=== PATIENT | female | born 1945 | race Caucasian/White ===

== ENCOUNTER 2019-08-25 12:38 | Day surgery (SDC) | payer MEDICARE, OTHER ==
[~2019-08-25] VITALS: Ht 160 cm; Wt 92.0 kg
[~2019-08-25 12:38] MED LIST: ASPI325EC PO; ASPI81CH PO; ATOR80 PO; CLON1 PO; CLOP75 PO; ESTMEDA PO; ESTR2 PO; ETOD300 PO; ETOD500 PO; HYDACE25S PR; LACT10SY PO; LEVSOD75 PO; LISI5 PO; METO25ER PO; NITR.4SL SL; Synthroid/Levothroid PO
--- NOTE | 2019-08-25 14:11 | NUR ---
PT ADMITTED TO [facility]. AGREES WITH PLANNED SURGEY. LUNG SOUNDS CLEAR.
--- NOTE | 2019-08-25 14:18 | NUR ---
NOZIN TO NARES BILATERALLY PER ORDER.
--- NOTE | 2019-08-25 14:46 | NUR ---
SPOKE WITH DR. RANGEL REGARDING OXYCONTIN ORDER. PT STATES IT "KNOCKS HER OUT" VERBAL ORDER GIVEN TO ONLY GIVE 10MG.
[2019-08-25] MEDS ORDERED: LOSA25 PO (15:29)
--- NOTE | 2019-08-25 19:45 | NUR ---
RECEIVED HAND OFF FROM Sukhi MENENDEZ RN USING SBAR. TRANSPORTED TO ROOM VIA HOSPITAL BED, TOLERATED WELL. AAOX3, HICKMAN, FOLLOWS ALL COMMANDS. ORIENTED TO ROOM, CALL SYSTEM, AND POC, VOICES UNDERSTANDING. RESPIRATIONS EVEN AND UNLABORED ON O2 AT 2L/NC, O2 SAT AT 95% WILL WEAN. LUNG SOUNDS CLEAR BILATERALLY. ABDOMEN SOFT AND NONDISTENDED. BOWEL SOUNDS PRESENT IN ALL QUADS. LLE WITH KHUSHI WRAP THAT IS C/D/I, AND POLAR MONICA ARE IN PLACE. GOOD DISTAL PULSES NOTED, ABLE TO MOVE FEET AND WIGGLE TOES. TEDS/SCD TO BLE. DENIES PAIN AT THIS TIME. SAFETY MEASURES IN PLACE. WILL CONTINUE TO MONITOR.
[2019-08-26 05:40] LABS: BASOPHILS ABSOLUTE AUTO 0.01 K/mm3 (0.00-0.23); BASOPHILS PERCENT AUTO 0 % (0-2); EOSINOPHILS PERCENT AUTO 0 % (0-6); Hematocrit 39.6 % (33.0-51.0); Hemoglobin 12.7 g/dL (11.5-16.0); IMMATURE GRAN ABSOLUTE AUTO 0.02 K/mm3 (0.00-0.10); IMMATURE GRAN PERCENT AUTO 0 % (0-1); LYMPHOCYTES ABSOLUTE AUTO 0.59 K/mm3 (0.84-5.20); LYMPHOCYTES PERCENT AUTO 8 % (21-46); MONOCYTES ABSOLUTE AUTO 0.12 K/mm3 (0.16-1.47); MONOCYTES PERCENT AUTO 2 % (4-13); Mean Corpuscular HGB 29.1 pg (26.0-34.0); Mean Corpuscular HGB Conc 32.1 g/dL (31.5-36.5); Mean Corpuscular Volume 91 fL (80-100); Mean Platelet Volume 10.6 fL (9.1-12.4); NEUTROPHILS ABSOLUTE AUTO 6.79 K/mm3 (1.96-9.15); NEUTROPHILS PERCENT AUTO 90 % (41-73); Platelet Count 162 K/mm3 (150-400); RDW Standard Deviation 42.8 fL (35.1-46.3); Red Blood Cell Count 4.37 M/mm3 (3.80-5.20); White Blood Cell Count 7.53 K/mm3 (4.00-11.30)
--- NOTE | 2019-08-26 05:51 | NUR ---
SHIFT SUMMARY HAS RESTED WELL, PAIN MANAGED WITH SCHEDULED TYLENOL AND TORADOL THIS SHIFT. AMBULATED X1 TO BATHROOM TO URINATE, TOLERATED WELL. HAS NOT HAD A BM YET, BUT IS PASSING FLATUS. IVF INFUSING PER MD ORDERS. DENIES FURTHER NEEDS OR WANTS AT THIS TIME. SAFETY MEASURES IN PLACE. WILL GIVE HAND OFF TO ONCOMING SHIFT USING SBAR DURING BEDSIDE REPORT.
[2019-08-26 05:59] LABS: Anion Gap 4 mmol/L (6-16); Blood Urea Nitrogen 19 mg/dL (8-24); CO2, Blood 27 mmol/L (21-32); Calcium, Blood 8.4 mg/dL (8.5-10.1); Chloride, Blood 109 mmol/L (98-108); Creatinine, Blood 0.48 mg/dL (0.40-1.00); Glomerular Filtration Rate >60 (60-); Glucose, Blood 146 mg/dL (70-99); Magnesium, Blood 2.2 mg/dL (1.6-2.4); Potassium, Blood 4.1 mmol/L (3.5-5.5); Sodium, Blood 140 mmol/L (136-145)
--- NOTE | 2019-08-26 06:21 | NUR ---
C/O REDNESS TO RIGHT HAND. NO HEAT, RASH, RAISED AREAS, N/T, PAIN, OR ITCHING REPORTED. EDEMA NOTED TO HAND AND FINGERS, PT IS ABLE TO CLOSE HAND. 18G SL PIV TO INNER ASPECT HAS NOT BEED USED D/T REPORTED DISCOMFRT. NO LABS WERE DRAWN FROM THIS ARM. BOARDER MARKED AND NOTED. ARM ELEVATED ON PILLOW ABOVE HEART LEVEL. WILL REPORT TO ONCOMING SHIFT. DENIES REDNESS ANYWHERE ELSE IN HER BODY. DENIES FURTHER NEEDS OR WANTS AT THIS TIME. SAFETY MEASURES IN PLACE. WILL CONTINUE TO MONITOR.
--- NOTE | 2019-08-26 10:06 | NUR ---
08/26/19 1006 Stacie Salinas VERIFICATIONS: EDIT CHART.
[2019-08-26] MEDS ORDERED: ASPI81CH PO ×2 (12:35→13:38)
[2019-08-26] MEDS ORDERED: ATOR80 PO (12:36)
[2019-08-26] MEDS ORDERED: HYDMOR2 PO (12:40)
[2019-08-26] MEDS ORDERED: PROM25 PO (12:40)
[2019-08-26] MEDS ORDERED: Bactrim Ds Tab1 EACH PO (12:41)
[2019-08-26] MEDS ORDERED: ATOR20 PO (13:31)
[2019-08-26] MEDS ORDERED: LOVA40 SC (13:35)
[2019-08-26] MEDS ORDERED: ENOX40I SC (13:41)
--- NOTE | 2019-08-26 15:00 | NUR ---
PATIENT D/C'D HOME WITH SPOUSE AT THIS TIME; STATES UNDERSTANDING OF MEDS, ACTIVITY, WOUND CARE, OP PT, F/U APPT, ETC. PATIENT STATES PAIN WELL CONTROLLED WITH PO PAIN MEDS. VOIDING, TOLERATING DIET. DRESSING CDI. CIRC CHECKS WNL. NO ACUTE CHANGES OR C/O.
== END 2019-08-26 14:57 | disposition home or self-care (01) ==
LOC: ORSCMMR 12:38 → ORD 14:15 → ORSCMMR 14:30 → ORD 15:00 → ORSCMMR 19:47 → SURS 19:47 → ORSCMMR 08-26 14:57 → ORD 09-29 12:00
PROVIDERS: Orthopaedic Surgery
PROC: 8E0YXBZ Computer Assisted Procedure of Lower Extremity (ICD-10-PCS; principal; 2019-08-25 16:00)
PROC: 0SRC069 Replacement of Right Knee Joint with Oxidized Zirconium on Polyethylene Synthetic Substitute, Cemented, Open Approach (ICD-10-PCS; principal; 2019-08-25 16:00)
DX: M17.12 Unilateral primary osteoarthritis, left knee (principal); E05.90 Thyrotoxicosis, unspecified without thyrotoxic crisis or storm; I25.2 Old myocardial infarction; I10 Essential (primary) hypertension; J45.909 Unspecified asthma, uncomplicated; Z79.82 Long term (current) use of aspirin; Z79.899 Other long term (current) drug therapy
CPT/HCPCS: 36415; 73560-LT; 80048; 82947; 83735; 85025; 88300; 97110; 97116; 97162; A9270-GY; C1713; C1776; J0171; J0690; J0735; J1100; J1650; J1815; J1885; J2250; J2405; J2704; J2795; J3010; J7030; J7120

== ENCOUNTER → 2022-07-25 | Outpatient (CLI) | payer MEDICARE ==
[~2022-07-25] MED LIST changes: +ATOR20 PO; +Bactrim Ds Tab1 EACH PO; +ENOX40I SC; +HYDMOR2 PO; +LOSA25 PO; +LOVA40 SC; +PROM25 PO
[2022-07-25 12:14] LABS: BASOPHILS ABSOLUTE AUTO 0.03 K/mm3 (0.00-0.23); BASOPHILS PERCENT AUTO 1 % (0-2); EOSINOPHILS ABSOLUTE AUTO 0.11 K/mm3 (0.00-0.68); EOSINOPHILS PERCENT AUTO 2 % (0-6); Hematocrit 48.4 % (33.0-51.0); Hemoglobin 15.9 g/dL (11.5-16.0); IMMATURE GRAN ABSOLUTE AUTO 0.02 K/mm3 (0.00-0.10); IMMATURE GRAN PERCENT AUTO 0 % (0-1); LYMPHOCYTES PERCENT AUTO 13 % (21-46); MONOCYTES ABSOLUTE AUTO 0.48 K/mm3 (0.16-1.47); MONOCYTES PERCENT AUTO 9 % (4-13); Mean Corpuscular HGB 29.2 pg (26.0-34.0); Mean Corpuscular HGB Conc 32.9 g/dL (31.5-36.5); Mean Corpuscular Volume 89 fL (80-100); NEUTROPHILS ABSOLUTE AUTO 3.97 K/mm3 (1.96-9.15); NEUTROPHILS PERCENT AUTO 75 % (41-73); Platelet Count 144 K/mm3 (150-400); RDW Coefficient Variation 14.6 % (11.7-14.2); RDW Standard Deviation 47.7 fL (35.1-46.3); Red Blood Cell Count 5.45 M/mm3 (3.80-5.20); White Blood Cell Count 5.31 K/mm3 (4.00-11.30)
[2022-07-25 12:24] LABS: Bun/Creatinine Ratio 29.1 (12.0-20.0); Calcium, Blood 8.9 mg/dL (8.5-10.1); Creatinine, Blood 0.79 mg/dL (0.40-1.00); Potassium, Blood 4.1 mmol/L (3.5-5.5)
== END | disposition home or self-care (01) ==
LOC: LAB SHORT 12:10 → LAB 12:10
PROVIDERS: Physician Assistant Surgical
DX: I48.91 Unspecified atrial fibrillation (principal); R06.00 Dyspnea, unspecified
CPT/HCPCS: 80048; 83880; 84484; 85025

== ENCOUNTER 2023-04-16 08:10 | Day surgery (SDC) | payer MEDICARE, OTHER ==
[~2023-04-16 08:10] MED LIST changes: +CEPH500 PO; +Norco 5-325 Ta1 EACH PO
== END 2023-05-02 22:54 | disposition home or self-care (01) ==
LOC: MOI MAM 08:10
DX: R92.0 Mammographic microcalcification found on diagnostic imaging of breast (principal)
CPT/HCPCS: 19081; 88305; A4648

== ENCOUNTER → 2023-07-01 | Outpatient (CLI) | payer MEDICARE | END | disposition home or self-care (01) | LOC: LAB 11:13 → LAB SHORT 11:13 | DX: R10.12 Left upper quadrant pain (principal); R10.13 Epigastric pain | CPT/HCPCS: 87338 ==

== ENCOUNTER 2024-03-05 09:15 | Observation (INO) | payer MEDICARE ==
[~2024-03-05] VITALS: Ht 162.6 cm; Wt 74.5 kg
[2024-03-05 10:09] LABS: BASOPHILS ABSOLUTE AUTO 0.04 K/mm3 (0.00-0.23); BASOPHILS PERCENT AUTO 1 % (0-2); EOSINOPHILS ABSOLUTE AUTO 0.12 K/mm3 (0.00-0.68); EOSINOPHILS PERCENT AUTO 2 % (0-6); Hematocrit 40.7 % (33.0-51.0); Hemoglobin 13.7 g/dL (11.5-16.0); IMMATURE GRAN ABSOLUTE AUTO 0.02 K/mm3 (0.00-0.10); IMMATURE GRAN PERCENT AUTO 0 % (0-1); LYMPHOCYTES ABSOLUTE AUTO 1.15 K/mm3 (0.84-5.20); LYMPHOCYTES PERCENT AUTO 23 % (21-46); MONOCYTES ABSOLUTE AUTO 0.39 K/mm3 (0.16-1.47); MONOCYTES PERCENT AUTO 8 % (4-13); Mean Corpuscular HGB 29.4 pg (26.0-34.0); Mean Corpuscular HGB Conc 33.7 g/dL (31.5-36.5); Mean Corpuscular Volume 87 fL (80-100); Mean Platelet Volume 11.6 fL (9.1-12.4); NEUTROPHILS ABSOLUTE AUTO 3.34 K/mm3 (1.96-9.15); NEUTROPHILS PERCENT AUTO 66 % (41-73); Platelet Count 141 K/mm3 (150-400); RDW Standard Deviation 45.1 fL (35.1-46.3); Red Blood Cell Count 4.66 M/mm3 (3.80-5.20); White Blood Cell Count 5.06 K/mm3 (4.00-11.30)
[2024-03-05 10:28] LABS: Albumin, Blood 3.9 g/dL (3.4-5.0); Albumin/Globulin Ratio 1.3 (0.8-1.8); Bilirubin, Total 1.2 mg/dL (0.1-1.0); Bun/Creatinine Ratio 27.4 (12.0-20.0); Calcium, Blood 9.5 mg/dL (8.5-10.1); Creatinine, Blood 0.84 mg/dL (0.40-1.00); Globulin, Blood 3.1 g/dL (2.2-4.0)
[2024-03-05] MEDS ORDERED: Aspirin 81 MG Chew PO ONE (15:00)
[2024-03-05] MEDS ORDERED: Acetaminophen 325 MG TABLET PO PRN (17:30)
[2024-03-05] MEDS ORDERED: Magnesium Hydroxide Conc 10 ML UDC PO PRN (17:30)
[2024-03-05] MEDS ORDERED: ELIQUIS5 M2 PO (20:17)
[2024-03-05] MEDS ORDERED: METO50ER PO (20:17)
[2024-03-05] MEDS ORDERED: PANT40 PO (20:19)
[2024-03-05 20:55] VITALS: BP 140/99
[2024-03-05] MEDS ORDERED: Metoprolol Succinate 50 MG TABCR PO SCH (21:00)
[2024-03-05] MEDS ORDERED: Apixaban 5 MG Tab PO SCH (21:00)
[2024-03-06 02:15] VITALS: BP 127/79
[2024-03-06] MEDS ORDERED: Levothyroxine Sodium 0.175 MG TAB PO SCH (06:00)
[2024-03-06] MEDS ORDERED: Pantoprazole Sodium 40 MG Tab PO SCH (06:00)
--- NOTE | 2024-03-06 06:40 | NUR ---
Patient alert and oriented, VSS, resting comfortably in bed. Pt. ambulating to restroom with standby assistance and FWW for needs.
[2024-03-06 07:51] VITALS: BP 129/65
[2024-03-06] MEDS ORDERED: Atorvastatin 40 MG Tab PO SCH (09:00)
[2024-03-06] MEDS ORDERED: Aspirin 81 MG Chew PO SCH (09:00)
[2024-03-06] MEDS ORDERED: Mometasone/Formoterol MDI 200/5 mcg 13 GM INH SCH (13:05)
[2024-03-06] MEDS ORDERED: Regadenoson 0.4 MG/5 ML SYRINGE ONE (14:14)
--- NOTE | 2024-03-06 15:55 | NUR ---
SHIFT SUMMARY; ECHO DONE TODAY. ONE DAY STRESS TEST ORDERED AND DONE TODAY. PATIENT HAS NOT HAD ANY SYNCOPAL EPISODES TODAY. SHE REMAINS IN AFIB. SHE HAS PLEASANT AFFECT AND IS NOTED TO BE JOKING WITH STAFF. PATIENT IS APHASIC AT TIMES HAVING DIFFICULTY FORMING SENTENCES AND FINDING CORECT WORDS. SHE APPEARS FRUSTRATED AT TIMES. SHE REMAINS ON TELE AND SHOWS AFIB. PER PATIENT SHE DID NOT KNOW SHE HAD AFIB AND WAS UNSURE WHY SHE WAS ON ELOQUIS. PATIENT DENIES ANY PAIN OR DISCOMFORT TODAY. HER VITAL SIGNS ARE STABLE AND WNL. WILL REMAIN AVAILABLE FOR THIS PATIENT FOR ANY WANTS OR NEEDS THAT COME UP UNTIL REPORT AND HAND OFF TO NOC SHIFT RN.
[2024-03-06 17:26] VITALS: BP 128/92
[2024-03-06 20:30] VITALS: BP 126/92
[2024-03-07 02:36] VITALS: BP 132/83
[2024-03-07 05:49] VITALS: BP 141/98
--- NOTE | 2024-03-07 06:06 | NUR ---
Patient alert and oriented x3, but forgetful overnight, using call light and bed alarm for assistance ambulating to restroom. VSS, tolerating room air appropriately, unsteady on feet at times while using FWW. Patient noted minor sharp pain to right anterior chest, which resolved after a couple of minutes without interventions, vitals WNL.
[2024-03-07 07:07] VITALS: BP 134/86
[2024-03-07] MEDS ORDERED: Sacubitril/Valsartan 24 MG-26 MG Tab PO SCH (09:00)
[2024-03-07] MEDS ORDERED: DULERA 200 MCG-13 GM INH (11:03)
[2024-03-07] MEDS ORDERED: ENTRESTO 24 MG1 EAC3 PO (11:04)
[2024-03-07] MEDS ORDERED: FURO20 PO (11:04)
== END 2024-03-07 11:50 | disposition home or self-care (01) ==
LOC: ER 09:15 → ERHOLD 09:16 → MEDS 09:16 → ENPENDDIS 03-07 10:42 → MEDS 03-07 11:50
PROVIDERS: Physician Assistant; ADMIT Internal Medicine
DX: I11.0 Hypertensive heart disease with heart failure (principal); I50.23 Acute on chronic systolic (congestive) heart failure; M77.8 Other enthesopathies, not elsewhere classified; I48.91 Unspecified atrial fibrillation; E03.9 Hypothyroidism, unspecified; J45.909 Unspecified asthma, uncomplicated; I25.10 Atherosclerotic heart disease of native coronary artery without angina pectoris; Z95.5 Presence of coronary angioplasty implant and graft; Z88.5 Allergy status to narcotic agent; Z88.8 Allergy status to other drugs, medicaments and biological substances; Z79.82 Long term (current) use of aspirin; Z79.899 Other long term (current) drug therapy
CPT/HCPCS: 36415; 71046; 78452; 80053; 84443; 84484; 85025; 85379; 93005; 93010; 93017; 94640; 94664; 94760; 99285-25; A9270; A9500; C8929; G0378; J2785; Q9957

== ENCOUNTER → 2024-03-12 | Outpatient (CLI) | payer MEDICARE ==
[~2024-03-12] MED LIST changes: +DULERA 200 MCG-13 GM INH; +ELIQUIS5 M2 PO; +ENTRESTO 24 MG1 EAC3 PO; +FURO20 PO; +METO50ER PO; +PANT40 PO
== END ==
LOC: LAB SHORT 12:36 → LAB 12:36
DX: R31.29 Other microscopic hematuria (principal)
CPT/HCPCS: 87086

== ENCOUNTER 2024-09-14 12:12 | Inpatient (IN) | payer MEDICARE, OTHER ==
[~2024-09-14] VITALS: Ht 162.6 cm; Wt 72.1 kg
[~2024-09-14 12:12] MED LIST changes: -Synthroid/Levothroid PO; +Synthroid175 MCG PO
[2024-09-14] MEDS ORDERED: Ondansetron HCl 2 MG / ML 2ML Vial IV PRN (12:40)
[2024-09-14 13:09] LABS: Albumin, Blood 3.8 g/dL (3.4-5.0); Albumin/Globulin Ratio 1.2 (0.8-1.8); Bilirubin, Total 1.1 mg/dL (0.1-1.0); Bun/Creatinine Ratio 24.1 (12.0-20.0); Calcium, Blood 9.3 mg/dL (8.5-10.1); Creatinine, Blood 0.95 mg/dL (0.40-1.00); Globulin, Blood 3.2 g/dL (2.2-4.0); Potassium, Blood 4.3 mmol/L (3.5-5.5)
[2024-09-14] MEDS ORDERED: Aspirin 325 MG Tab PO ONE (13:15)
[2024-09-14 13:19] LABS: BASOPHILS ABSOLUTE AUTO 0.03 K/mm3 (0.00-0.23); BASOPHILS PERCENT AUTO 1 % (0-2); EOSINOPHILS ABSOLUTE AUTO 0.07 K/mm3 (0.00-0.68); EOSINOPHILS PERCENT AUTO 2 % (0-6); Hematocrit 49.1 % (33.0-51.0); Hemoglobin 15.9 g/dL (11.5-16.0); IMMATURE GRAN PERCENT AUTO 0 % (0-1); LYMPHOCYTES ABSOLUTE AUTO 1.14 K/mm3 (0.84-5.20); LYMPHOCYTES PERCENT AUTO 24 % (21-46); MONOCYTES ABSOLUTE AUTO 0.41 K/mm3 (0.16-1.47); MONOCYTES PERCENT AUTO 9 % (4-13); Mean Corpuscular HGB 29.5 pg (26.0-34.0); Mean Corpuscular HGB Conc 32.4 g/dL (31.5-36.5); Mean Corpuscular Volume 91 fL (80-100); Mean Platelet Volume 11.2 fL (9.1-12.4); NEUTROPHILS ABSOLUTE AUTO 3.03 K/mm3 (1.96-9.15); NEUTROPHILS PERCENT AUTO 65 % (41-73); Platelet Count 161 K/mm3 (150-400); RDW Standard Deviation 47.2 fL (35.1-46.3); Red Blood Cell Count 5.39 M/mm3 (3.80-5.20); White Blood Cell Count 4.68 K/mm3 (4.00-11.30)
[2024-09-14] MEDS ORDERED: Nitroglycerin 0.4 MG SUBL SL PRN (13:20)
[2024-09-14] MEDS ORDERED: Aspirin 81 MG Chew PO ONE (13:30)
[2024-09-14] MEDS ORDERED: Mometasone/Formoterol MDI 200/5 mcg 13 GM INH PRN (16:05)
[2024-09-14] MEDS ORDERED: FLU VACC TS2024-25(6MOS UP)/PF 45 MCG/0.5 ML SYRINGE IM SCH (16:05)
[2024-09-14 17:52] VITALS: BP 119/90
--- NOTE | 2024-09-14 18:09 | NUR ---
PT ARRIVED ON MEDICAL FLOOR FROM ER. DENIES CHEST PAIN AND SOB, ABLE TO EXPRESS NEEDS. DAUGHTER AT BEDSIDE.
[2024-09-14] MEDS ORDERED: JARDIANCE10 MG PO (18:32)
[2024-09-14] MEDS ORDERED: Sacubitril/Valsartan 24 MG-26 MG Tab PO SCH (21:00)
[2024-09-14] MEDS ORDERED: Apixaban 5 MG Tab PO SCH (21:00)
[2024-09-14 21:10] VITALS: BP 97/61
[2024-09-14 23:45] VITALS: BP 91/64
[2024-09-14 23:48] VITALS: BP 91/64
[2024-09-15] VITALS (8 sets, daily range): BP systolic 81–124; BP diastolic 54–107
--- NOTE | 2024-09-15 04:33 | NUR ---
SHIFT SUMMARY ADMITTED FOR CHEST PAIN/PALPITATIONS. FULL CODE. PLAN IS FOR NEW RX TRIAL TOMORROW TO MANAGE HER S/SX. SHE DID STATE TWO EPISODES OF PAIN IN HER RIGHT CHEST, ONCE RECEIVING NITRO WITH RELIEF. TELEMETRY: AFIB @ 77 BPM. CATRINA CBG'S. ON RA. A&O X4. STANDBY ASSIST - BRP.
[2024-09-15 05:42] LABS: BASOPHILS ABSOLUTE AUTO 0.03 K/mm3 (0.00-0.23); BASOPHILS PERCENT AUTO 1 % (0-2); EOSINOPHILS ABSOLUTE AUTO 0.09 K/mm3 (0.00-0.68); EOSINOPHILS PERCENT AUTO 2 % (0-6); Hematocrit 43.3 % (33.0-51.0); Hemoglobin 14.3 g/dL (11.5-16.0); IMMATURE GRAN ABSOLUTE AUTO 0.01 K/mm3 (0.00-0.10); IMMATURE GRAN PERCENT AUTO 0 % (0-1); LYMPHOCYTES ABSOLUTE AUTO 1.63 K/mm3 (0.84-5.20); LYMPHOCYTES PERCENT AUTO 33 % (21-46); MONOCYTES ABSOLUTE AUTO 0.44 K/mm3 (0.16-1.47); MONOCYTES PERCENT AUTO 9 % (4-13); Mean Corpuscular HGB 29.6 pg (26.0-34.0); Mean Corpuscular Volume 90 fL (80-100); Mean Platelet Volume 11.1 fL (9.1-12.4); NEUTROPHILS ABSOLUTE AUTO 2.75 K/mm3 (1.96-9.15); NEUTROPHILS PERCENT AUTO 56 % (41-73); Platelet Count 134 K/mm3 (150-400); RDW Coefficient Variation 13.8 % (11.7-14.2); RDW Standard Deviation 45.6 fL (35.1-46.3); Red Blood Cell Count 4.83 M/mm3 (3.80-5.20); White Blood Cell Count 4.95 K/mm3 (4.00-11.30)
[2024-09-15] MEDS ORDERED: Pantoprazole Sodium 40 MG Tab PO SCH (06:00)
[2024-09-15] MEDS ORDERED: Levothyroxine Sodium 0.175 MG TAB PO SCH (06:00)
[2024-09-15 06:14] LABS: Alanine Aminotransfer (ALT/SGP 26 U/L (12-78); Albumin, Blood 3.2 g/dL (3.4-5.0); Albumin/Globulin Ratio 1.1 (0.8-1.8); Alk Phos 76 U/L (50-136); Anion Gap 8 mmol/L (3-11); Aspartate Aminotrans (AST/SGOT 22 U/L (12-37); Bilirubin, Total 1.2 mg/dL (0.1-1.0); Blood Urea Nitrogen 22 mg/dL (8-24); Bun/Creatinine Ratio 23.3 (12.0-20.0); CHOL/HDL RATIO 2.4; CO2, Blood 28 mmol/L (21-32); Chloride, Blood 108 mmol/L (98-108); Cholesterol 132 mg/dL (50-200); Creatinine, Blood 0.94 mg/dL (0.40-1.00); Globulin, Blood 2.8 g/dL (2.2-4.0); Glomerular Filtration Rate 62 (60-); Glucose, Blood 91 mg/dL (70-99); HDL Cholesterol 56 mg/dL (>39); LDL/HDL RATIO 1.1; Low Density Lipoprotein Chol 59 mg/dL (0-110); Potassium, Blood 4.1 mmol/L (3.5-5.5); Sodium, Blood 140 mmol/L (136-145); Triglycerides 86 mg/dL (30-160); Very Low Density Lipoprot Chol 17 mg/dL (6-32)
[2024-09-15] MEDS ORDERED: Empagliflozin 10 MG TAB PO SCH (09:00)
[2024-09-15] MEDS ORDERED: Atorvastatin 40 MG Tab PO SCH (09:00)
[2024-09-15] MEDS ORDERED: Aspirin 81 MG Chew PO SCH (09:00)
[2024-09-15] MEDS ORDERED: Metoprolol Succinate 50 MG TABCR PO SCH ×2 (09:00)
[2024-09-15] MEDS ORDERED: Isosorbide Mononitrate 60 MG TABCR PO SCH (09:00)
[2024-09-15] MEDS ORDERED: ALBU90OI INH (15:04)
[2024-09-15] MEDS ORDERED: Acetaminophen 325 MG TABLET PO PRN (15:05)
--- NOTE | 2024-09-15 17:12 | NUR ---
SUMMARY PT IS ALERT AND ORIENTED X4, INTERMITTENT APHASIC MOMENTS. PT STATES SHE DOESNT UNDERSTAND WHY THIS OCCURS. STATES THAT IT HAS BEEN HAPPENING OVER PAST YEAR. PT DENIES CHEST PAIN THIS SHIFT. DID DESCRIBE A SINGLE SHARP PAIN IN RIGHT NIPPLE THAT DID NOT REOCCUR THIS SHIFT. SBA TO BATHROOM. PT EXPERIENCES MOMENTARY DIZZINESS AND DISORIENTATION UPON STANDING. DESCRIBES OBJECTS BEING "WAVY" WHILE TRYING TO FOCUS IN ON OBJECT. THIS OCCURRED WHILE MD WAS AT BEDSIDE EARLY ON IN THE SHIFT. PENDING RESULTS OF CTA. DR. SINGER SAW PT AT BEDSIDE THIS AFTERNOON. PER MD, NO NEW ORDERS AT THIS TIME. AFIB ON TELE. PT CALLS APPROPRIATELY
[2024-09-16] VITALS (8 sets, daily range): BP systolic 47–116; BP diastolic 33–75
--- NOTE | 2024-09-16 03:52 | NUR ---
SHIFT SUMMARY ADMITTED FOR CHEST PAIN/PALPITATIONS. FULL CODE. PLAN IS TO MANAGE THIS PROBLEM WITH MEDICATION. CARDIAC DIET. ON RA. PT EVAL. TELEMETRY: AFIB @ 87 BPM. AC CBG'S. I HAVE NOTED HER CONFUSION THIS SHIFT. SHE IS A&O TO SELF AND FAMILY. SHE DOES NOT KNOW WHERE SHE IS OR WHY SHE IS HERE. AM SHIFT REPORTED SIMILAR CONFUSION TO ME. I AM SETTING HER BED ALARM A RESULT AND MAKING HER A STANDBY ASSIST FOR SAFETY. SHE DENIES PAIN EXCEPT FOR A HEADACHE. PALLIATIVE CARE IS CONSULTED.
[2024-09-16 06:09] LABS: Hemoglobin 13.6 g/dL (11.5-16.0); Mean Corpuscular HGB 29.5 pg (26.0-34.0); Mean Corpuscular HGB Conc 33.2 g/dL (31.5-36.5); Mean Corpuscular Volume 89 fL (80-100); Mean Platelet Volume 11.1 fL (9.1-12.4); Platelet Count 131 K/mm3 (150-400); RDW Coefficient Variation 13.8 % (11.7-14.2); RDW Standard Deviation 45.1 fL (35.1-46.3); Red Blood Cell Count 4.61 M/mm3 (3.80-5.20); White Blood Cell Count 5.49 K/mm3 (4.00-11.30)
[2024-09-16 06:25] LABS: Albumin, Blood 3.3 g/dL (3.4-5.0); Albumin/Globulin Ratio 1.2 (0.8-1.8); Bilirubin, Total 1.3 mg/dL (0.1-1.0); Bun/Creatinine Ratio 27.5 (12.0-20.0); Calcium, Blood 9.1 mg/dL (8.5-10.1); Creatinine, Blood 0.95 mg/dL (0.40-1.00); Globulin, Blood 2.8 g/dL (2.2-4.0); Potassium, Blood 4.1 mmol/L (3.5-5.5); Total Protein, Blood 6.1 g/dL (6.4-8.2)
[2024-09-16] MEDS ORDERED: Lactated Ringer's 1,000 ML IV SCH (08:00)
[2024-09-16] MEDS ORDERED: Metoprolol Succinate 25 MG TABCR PO SCH ×2 (09:00→11:00)
[2024-09-16 09:11] LABS: Source, Urine Voided
[2024-09-16 10:03] LABS: Appearance, Urine Clear (Clear); Bilirubin, Urine Neg (Neg); Blood, Urine 3+ (Neg); Color, Urine Yellow (P-Yellow); Glucose Qualitative, Urine 4+ (Neg); Ketones, Urine 1+ (Neg); Leukocyte Esterase, Urine Neg (Neg); Nitrite, Urine Neg (Neg); Protein, Urine Neg (Neg); Urobilinogen, Urine NORM (Normal)
[2024-09-16 10:54] LABS: Amorphous Light (0-Heavy); Bacteria Many /hpf; Mucus Light (0-Heavy); Red Blood Cells, Urine 0-2 /hpf (0-2); Squamous Epithelial Cells Many /hpf (Few); White Blood Cells, Urine 0-2 /hpf (0-5)
[2024-09-16 10:55] LABS: Hyaline Casts 0-2 /lpf (0-2)
[2024-09-16] MEDS ORDERED: Isosorbide Mono30 MG PO (16:01)
[2024-09-16] MEDS ORDERED: MECL12.5 PO (16:02)
--- NOTE | 2024-09-16 17:23 | NUR ---
PT DISCHARGED HOME WITH HOME HEALTH. [facility] EMPHASIZED IMPORTANCE OF CHECKING BLOOD PRESSURE BEFORE AND AFTER TAKING ALL BLOOD PRESSURE MEDICATIONS. PT VERBALIZED UNDERSTANDING. PT STATES THAT SHE DOES HAVE A BLOOD PRESSURE MONITOR AT HOME. DISCUSSED DISCHARGE INSTRUCTIONS WITH PT. ADVISED PT TO FOLLOW UP WITH PCP AND MEDIC TECHNICIAN AT [facility]. PHONE NUMBER PROVIDED FOR BOTH OFFICES. PT ALERT AND ORIENTED X4, NO SLURRING OF SPEECH THIS SHIFT. PT STATES SHE WILL BE USING A FWW RECOMMENDED BY PHYSICAL THERAPY.
[2024-09-17] MEDS ORDERED: Isosorbide Mononitrate 30 MG TABCR PO SCH (08:00)
[2024-09-20] MEDS ORDERED: Levothyroxine Sodium 0.175 MG TAB PO SCH (06:00)
== END 2024-09-16 16:44 | disposition home health service (06) | DRG 303 ==
LOC: ER 12:12 → MEDS 12:13
PROVIDERS: Emergency Medicine; ADMIT Internal Medicine
DX: I25.118 Atherosclerotic heart disease of native coronary artery with other forms of angina pectoris (principal); I50.22 Chronic systolic (congestive) heart failure; F05 Delirium due to known physiological condition; I48.0 Paroxysmal atrial fibrillation; E03.9 Hypothyroidism, unspecified; E11.9 Type 2 diabetes mellitus without complications; J45.909 Unspecified asthma, uncomplicated; Z95.5 Presence of coronary angioplasty implant and graft; I11.0 Hypertensive heart disease with heart failure; E86.0 Dehydration; R47.81 Slurred speech; I25.2 Old myocardial infarction; Z88.5 Allergy status to narcotic agent; Z88.8 Allergy status to other drugs, medicaments and biological substances; Z79.82 Long term (current) use of aspirin; Z79.890 Hormone replacement therapy; Z79.01 Long term (current) use of anticoagulants; Z79.899 Other long term (current) drug therapy; Z90.49 Acquired absence of other specified parts of digestive tract; Z90.710 Acquired absence of both cervix and uterus; Z90.89 Acquired absence of other organs
CPT/HCPCS: 36415; 70450; 70496; 70498; 71046; 80053; 80061; 81001; 82550; 82947; 83036; 83690; 83735; 83880; 84443; 84484; 85025; 85027; 93005; 93010; 94760; 96374; 97116; 97161; 97530; 99285-25; A9270; C8929; G0378; J2405; J7120; Q9957; Q9967

== ENCOUNTER → 2025-03-18 | Outpatient (CLI) | payer MEDICARE ==
[~2025-03-18] MED LIST changes: +ALBU90OI INH; +Isosorbide Mono30 MG PO; +JARDIANCE10 MG PO; +LOSARTAN POTASS25 M2; +MECL12.5 PO
== END ==
LOC: LAB SHORT 11:46 → LAB 11:46
DX: N39.0 Urinary tract infection, site not specified (principal)
CPT/HCPCS: 87086